=== PATIENT | male | born 2000 | race Caucasian/White ===

== ENCOUNTER 2022-10-10 22:19 | Emergency (ER) | payer OTHER ==
[~2022-10-10] VITALS: Ht 180.3 cm; Wt 81.2 kg
[2022-10-11] MEDS ORDERED: ONDANSETRON ODT 4 MG TAB.RAPDIS ONE ×2 (00:23→00:38)
[2022-10-11] MEDS ORDERED: ONDANSETRON ODT 4 MG TAB.RAPDIS SL ONE ×2 (00:30→00:45)
[2022-10-11 00:46] LABS: HEMATOCRIT 50.2 % (36.7-47.1); MEAN CORPUSCULAR VOLUME 88.8 fL (73.0-96.2); PLATELET COUNT (AUTO) 256 K/uL (152-348)
[2022-10-11] MEDS ORDERED: diphenhydrAMINE 50 MG/1 ML VIAL ONE (00:55)
[2022-10-11] MEDS ORDERED: METOCLOPRAMIDE HCL 10 MG/2 ML VIAL ONE (00:55)
[2022-10-11] MEDS ORDERED: diphenhydrAMINE 50 MG/1 ML VIAL IV ONE (01:00)
[2022-10-11] MEDS ORDERED: METOCLOPRAMIDE HCL 10 MG/2 ML VIAL IV ONE (01:00)
[2022-10-11] MEDS ORDERED: IV NS 1000 ML 1,000 ML IV ONE (01:00)
[2022-10-11 01:01] LABS: ALANINE AMINOTRANSFERASE 30 U/L (16-63); ALKALINE PHOSPHATASE 83 U/L (50-136); ASPARTATE AMINOTRANSFERASE 13 U/L (15-37); BILIRUBIN,DIRECT 0.1 mg/dL (0.0-0.2); BILIRUBIN,TOTAL 0.4 mg/dL (0.2-1.0); CARBON DIOXIDE 31 mmol/L (21-32); CHLORIDE 99 mmol/L (98-107); CREATININE 1.2 mg/dL (0.6-1.3); GLUCOSE 118 mg/dL (74-106); POTASSIUM 3.8 mmol/L (3.5-5.1); TOTAL PROTEIN, SERUM 8.4 g/dL (6.4-8.2); UREA NITROGEN, BLOOD 20 mg/dL (7-18)
[2022-10-11 01:14] LABS: ETHANOL < 3 MG/DL (0-0)
[2022-10-11] MEDS ORDERED: KETOROLAC TROMETHAMINE 30 MG INJ ONE (02:22)
[2022-10-11] MEDS ORDERED: KETOROLAC TROMETHAMINE 30 MG INJ IVP ONE (02:30)
--- NOTE | 2022-10-11 07:05 | NUR ---
Received endorsement from Juliet MYRICK
--- NOTE | 2022-10-11 07:15 | NUR ---
ENDORSED TO DEJAH CASTILLO
[2022-10-11] MEDS ORDERED: ONDA4TAB11 PO (07:34)
--- NOTE | 2022-10-11 07:40 | NUR ---
Patient discharged to home in stable condition. Written and verbal after care instructions given. Patient verbalizes understanding of instructions. Stressed follow up or return to ER for worsening s/s.
[2022-10-11 07:52] VITALS: BP 125/86
== END 2022-10-11 07:40 | disposition home or self-care (01) ==
LOC: ER 22:19
DX: S06.0XAA Concussion with loss of consciousness status unknown, initial encounter (principal); R40.2362 Coma scale, best motor response, obeys commands, at arrival to emergency department; R40.2142 Coma scale, eyes open, spontaneous, at arrival to emergency department; R40.2252 Coma scale, best verbal response, oriented, at arrival to emergency department; V00.311A Fall from snowboard, initial encounter; Y93.23 Activity, snow (alpine) (downhill) skiing, snowboarding, sledding, tobogganing and snow tubing; Y92.838 Other recreation area as the place of occurrence of the external cause; Z20.822 Contact with and (suspected) exposure to COVID-19; G40.909 Epilepsy, unspecified, not intractable, without status epilepticus; R10.33 Periumbilical pain; R19.7 Diarrhea, unspecified
CPT/HCPCS: 80076; 80048; 85025; 85730; 87426; 36415; 70450; 99284; 96361; 96374; 96375; 80320; J1200; J1885; J2765; G0480; Q0162